=== PATIENT | male | born 1980 | race Caucasian/White ===

== ENCOUNTER 2017-03-09 08:20 | Day surgery (SDC) | payer OTHER ==
[~2017-03-09] VITALS: Ht 180.3 cm; Wt 74.5 kg
[2017-03-09 09:25] VITALS: BP 138/97; PULSE 73; TEMP 98.8
[2017-03-09] MEDS ORDERED: PRINZIDE 12.5 M1 TA1 PO (09:33)
[2017-03-09] MEDS ORDERED: NOVOLOG 100U100 U/M1 SQ (09:33)
[2017-03-09] MEDS ORDERED: OMEGA-3 1000 MG1 CAP PO (09:34)
[2017-03-09] MEDS ORDERED: MULTIPLE VITAMI1 TA5 PO (09:34)
[2017-03-09] MEDS ORDERED: LIALDA 1.2 GM1.2 GM PO (09:34)
[2017-03-09 10:05] VITALS: BP 106/77; PULSE 69; TEMP 98.7
[2017-03-09 10:20] VITALS: BP 116/76; PULSE 87; TEMP 98.7
[2017-03-09 10:35] VITALS: BP 109/78; PULSE 51; TEMP 98.7
[2017-03-09 10:50] VITALS: BP 100/73; PULSE 48; TEMP 98.7
[2017-03-09 13:03] VITALS: BP 100/64; PULSE 58
== END 2017-03-09 11:00 | disposition home or self-care (01) ==
LOC: SDCO 08:20
DX: K50.80 Crohn's disease of both small and large intestine without complications (principal); K52.9 Noninfective gastroenteritis and colitis, unspecified; I10 Essential (primary) hypertension; Z79.4 Long term (current) use of insulin; Z90.89 Acquired absence of other organs; Z90.49 Acquired absence of other specified parts of digestive tract
CPT/HCPCS: J2250; J3010; J7030

== ENCOUNTER → 2018-04-08 | Outpatient (CLI) | payer OTHER ==
[~2018-04-08] MED LIST: LIALDA 1.2 GM1.2 GM PO; MULTIPLE VITAMI1 TA5 PO; NOVOLOG 100U100 U/M1 SQ; OMEGA-3 1000 MG1 CAP PO; PRINZIDE 12.5 M1 TA1 PO
== END ==
LOC: COL.RAD 11:30
DX: M79.672 Pain in left foot (principal); L23.9 Allergic contact dermatitis, unspecified cause

== ENCOUNTER 2018-06-21 19:03 | Emergency (ER) | payer OTHER ==
[~2018-06-21] VITALS: Ht 71 cm; Wt 75.0 kg
[2018-06-21 19:52] LABS: BASO # 0.1 (0.0-0.2); BASO % 0.6 % (0.0-2.0); EOS # 0.1 (0.0-0.7); EOS % 1.5 % (0-4.0); GRAN # 5.6 (1.4-6.5); GRAN % 66.1 % (42.2-75.2); HEMATOCRIT 40.3 % (42.0-52.0); HEMOGLOBIN 14.4 g/dl (13.5-18.0); LYMPH # 2.1 (1.2-3.4); LYMPH % 24.6 % (20.0-51.0); MEAN CELL VOLUME 89 fl (80.0-100.0); MEAN CORPUSCULAR HEMOGLOBIN 32 pg (27.0-31.0); MEAN CORPUSCULAR HGB CONC 36 g/dl (33.0-37.0); MEAN PLATELET VOLUME 9.9 fl (7.4-10.4); MONO # 0.6 (0.1-0.6); PLATELET COUNT 227 K/mm3 (130-400); RED BLOOD COUNT 4.54 M/mm3 (4.20-5.60); REDCELL DISTRIBUTION WIDTH-CV 11.8 % (11.5-14.5)
[2018-06-21 19:53] LABS: ALANINE AMINOTRANSFERASE 35 U/L (21-72); ALBUMIN 3.9 gm/dL (3.5-5.0); ALKALINE PHOSPHATASE 66 U/L (50-136); ANION GAP 11 mmol/L (7-16); AST,SGOT 26 U/L (15-37); BILIRUBIN,TOTAL 0.4 mg/dL (0.0-1.0); BLOOD UREA NITROGEN 15 mg/dL (9-20); CALCIUM 8.6 mg/dL (8.4-10.2); CARBON DIOXIDE 31 mmol/L (22-30); CHLORIDE 97 mmol/L (98-107); CREATININE, serum 0.71 mg/dL (0.66-1.25); GLUCOSE 147 mg/dL (74-106); LIPASE 56 U/L (23-300); POTASSIUM 3.7 mmol/L (3.4-5.0); SODIUM 139 mmol/L (137-145); TOTAL PROTEIN 7.1 gm/dL (6.4-8.2)
[2018-06-21 20:07] LABS: TROPONIN-I < 0.012 ng/mL (0.000-0.034)
[2018-06-21 22:56] VITALS: BP 142/95; PULSE 54
== END 2018-06-21 22:54 | disposition home or self-care (01) ==
LOC: COL.ER 19:03
PROVIDERS: Emergency Medicine
DX: R07.89 Other chest pain (principal); E11.9 Type 2 diabetes mellitus without complications; I10 Essential (primary) hypertension; K50.90 Crohn's disease, unspecified, without complications; Z90.89 Acquired absence of other organs; Z79.4 Long term (current) use of insulin
CPT/HCPCS: J7030

== ENCOUNTER 2021-03-15 07:00 | Outpatient (CLI) | payer OTHER ==
[~2021-03-15] VITALS: Ht 180.3 cm; Wt 73.6 kg
[2021-03-15] VITALS (18 sets, daily range): BP systolic 130–171; BP diastolic 84–107; PULSE 73–109; TEMP 80
[~2021-03-15 07:00] MED LIST changes: +BIOCLEANSE PO; -OMEGA-3 1000 MG1 CAP PO; +OMEGA-3 FISH1000 MG PO; +OMEGA-31 SGL PO; +PROBIOTICA100 MILLIO PO
[2021-03-15] MEDS ORDERED: XANAX .25M0.25 MG/TA PO (07:49)
--- NOTE | 2021-03-15 08:26 | NUR ---
PTTAKEN OVER TO CT AND PLACED INTO POSITION. MONITORING EQUIPMENT PLACED, PICTURES TAKEN AND SENT.
--- NOTE | 2021-03-15 08:55 | NUR ---
PT WAS GIVEN 0.5 MG VERSED AND 25 MCG FENTANYL R/T ANXIETY.
--- NOTE | 2021-03-15 09:23 | NUR ---
Pt arrives to rm 10 following lung bx. Bandaid over puncture site is clean, dry and intact. Pt reports pain to lower back that wrapping around to front. Will call radiologist for pain med per pt's request. Pt laying with head of bed at 10 degrees for comfort. Call light in reach. Pt is asked to verify his blood sugar due to continuous insulin pump, current blood sugar is 187mg/dL. He will continue to monitor levels due to NPO status.
--- NOTE | 2021-03-15 10:00 | NUR ---
C/o increased pain with muscle spasms to back after sitting up to take tylenol tabs. HOB lowered and O2 at 2L/min applied for comfort. Extra pillow provided for splinting of abd and side if needed. Lights dimmed. at bedside.
--- NOTE | 2021-03-15 10:45 | NUR ---
Pt states pain slightly improved. Resting comfortably, respirations even and unlabored. O2 remains in place for comfort. Call light in reach.
--- NOTE | 2021-03-15 12:23 | NUR ---
Pt has ambulated to restroom with steady gait. Movements are slow due to tightness to rt side that continues to wrap around abd. This discomfort has improved with tylenol. Home cares discussed with pt and . DC instructions reviewed. Both express understanding. INT DC'd with catheter intact.
--- NOTE | 2021-03-15 12:30 | NUR ---
Pt assisted out to car by wheelchair with belongings.
[2021-05-16] MEDS ORDERED: PROBIO PO (12:46)
[2021-05-16] MEDS ORDERED: MEGARED ADVANC1 EAC1 PO (12:48)
[2021-05-16] MEDS ORDERED: PANCREAZE 437501 ECC PO (12:50)
[2021-05-16] MEDS ORDERED: ADK PO (12:50)
[2021-05-16] MEDS ORDERED: ALPHA LIPOIC A200 M2 PO (12:51)
[2021-05-16] MEDS ORDERED: [UNRECOGNIZED DRUG - OTHER] PO (12:52)
== END 2021-03-15 12:30 | disposition home or self-care (01) ==
LOC: COL.RAD 07:00
DX: D38.1 Neoplasm of uncertain behavior of trachea, bronchus and lung (principal)
CPT/HCPCS: J2250; J3010

== ENCOUNTER → 2021-11-21 | Outpatient (CLI) | payer OTHER ==
[~2021-11-21] MED LIST changes: +ADK PO; +ALPHA LIPOIC A200 M2 PO; +MEGARED ADVANC1 EAC1 PO; +PANCREAZE 437501 ECC PO; +PROBIO PO; +XANAX .25M0.25 MG/TA PO; +[UNRECOGNIZED DRUG - OTHER] PO
== END ==
LOC: COL.RAD 12:31
DX: R91.8 Other nonspecific abnormal finding of lung field (principal)

== ENCOUNTER → 2022-05-08 | Outpatient (CLI) | payer OTHER | LOC: COL.RAD 07:16 | DX: R91.1 Solitary pulmonary nodule (principal); Z98.890 Other specified postprocedural states ==